=== PATIENT | female | born 1975 | race Caucasian/White ===

== ENCOUNTER 2018-12-12 13:42 | Outpatient (CLI) | payer OTHER ==
[2018-12-12 19:12] LABS: BASOPHILS # (AUTO) 0.1 10^3/uL (0.0-0.1); BASOPHILS % (AUTO) 0.9 %; EOSINOPHILS # (AUTO) 0.2 10^3/uL (0.0-0.7); EOSINOPHILS % (AUTO) 1.8 %; HGB - HEMOGLOBIN 13.6 g/dL (12.0-16.0); LYMPHOCYTES # (AUTO) 3.1 10^3/uL (1.5-3.5); LYMPHOCYTES % (AUTO) 37.4 %; MEAN CORPUSCULAR HEMOGLOBIN 28.5 pg (27.0-31.0); MEAN CORPUSCULAR HGB CONC 31.3 g/dL (32.0-36.0); MEAN CORPUSCULAR VOLUME 91.2 fL (81.0-99.0); MEAN PLATELET VOLUME 11.7 fL (7.9-10.8); MONOCYTES # (AUTO) 0.6 10^3/uL (0.0-1.0); MONOCYTES % (AUTO) 6.8 %; NEUTROPHILS # (AUTO) 4.3 10^3/uL (1.5-6.6); NEUTROPHILS % (AUTO) 52.9 %; PLT - PLATELET COUNT 281 10^3/uL (130-450); RED BLOOD COUNT 4.77 10^6/uL (4.20-5.40); RED CELL DISTRIBUTION WIDTH 13.7 % (12.0-15.0); WHITE BLOOD COUNT 8.2 x10^3/uL (4.8-10.8)
[2018-12-12 19:48] LABS: ALBUMIN 4.4 g/dL (3.2-5.5); ALBUMIN/GLOBULIN RATIO 1.2 (1.0-2.2); ALKALINE PHOSPHATASE 68 IU/L (42-121); ALT ALANINE AMINOTRANSFERASE 26 IU/L (10-60); AST ASPARTATE AMINOTRANSFERASE 24 IU/L (10-42); BILIRUBIN,TOTAL 0.4 mg/dL (0.2-1.0); BUN - BLOOD UREA NITROGEN 17 mg/dL (6-20); CALCIUM 9.8 mg/dL (8.5-10.3); CARBON DIOXIDE - CO2 26 mmol/L (21-32); CHLORIDE 101 mmol/L (101-111); CHOL/HDL RATIO 6.1 (<4.4); CHOLESTEROL 219 mg/dL; CREATININE 0.8 mg/dL (0.4-1.0); GFR - MDRD 78 (>89); GLUCOSE 112 mg/dL (70-100); HDL CHOLESTEROL 36 mg/dL; SODIUM 136 mmol/L (135-145); TOTAL PROTEIN 8.2 g/dL (6.7-8.2)
[2018-12-12 20:07] LABS: LDL CHOLESTEROL,DIRECT 138 mg/dL; LDLD/HDL RATIO 3.8 (<4.4)
== END 2018-12-12 23:59 | disposition home or self-care (01) ==
LOC: LAB.WCP 13:42
PROVIDERS: ATTEND Nurse Practitioner Family
DX: E78.5 Hyperlipidemia, unspecified (principal); F41.9 Anxiety disorder, unspecified; F32.9 Major depressive disorder, single episode, unspecified
CPT/HCPCS: 36415; 80050; 80061; 83721

== ENCOUNTER 2019-01-16 08:58 | Outpatient (CLI) | payer OTHER ==
--- NOTE | 2019-01-16 11:55 | Mammography Report ---
Reason: ABNORMAL MAMMOGRAM Procedure Date: 01/16/2019 Accession Number: [id number] / [id number] Procedure: ARMANI - Diag Special Views Dig LT CPT Code: Final Report FULL RESULT: EXAM: Diag Special Views Dig LT DATE: 01/16/2019 9:53 AM CLINICAL HISTORY: Diagnostic examination. The patient is recalled from screening for a left breast finding. TECHNIQUE: (L) - Left CC, spot CC, ML images are obtained. COMPARISON: 12/19/2018 and 12/04/2014. PARENCHYMAL PATTERN: (A) - The breast(s) demonstrate(s) scattered fibroglandular densities. FINDINGS: The one view asymmetry seen 4.6 cm from the nipple on the left CC projection is tomographically identified as residing in the superior breast with appearance most consistent with breast parenchyma and localized on the MLO projection to the superior portion of the breast cone left ML 3-D image 41 and left CC 3-D image 45, typically benign. There are no suspicious masses, calcifications, or areas of distortion. IMPRESSION: Benign findings. BI-RADS category 2. RECOMMENDATION: (ANNUAL) - Recommend routine annual screening mammography. BI-RADS CATEGORY: (2) - Benign Findings. STANDARD QUALIFYING STATEMENTS: 1. This examination was not reviewed with the aid of Computer-Aided Detection (CAD). 2. A negative or benign imaging report should not preclude biopsy if clinically suspicious findings are present. 3. Dense breasts may obscure an underlying neoplasm. 4. This examination was reviewed with the aid of 3D breast imaging (tomosynthesis).
== END 2019-01-16 08:59 | disposition home or self-care (01) ==
LOC: DI 08:58
PROVIDERS: ATTEND Nurse Practitioner Family
DX: R92.8 Other abnormal and inconclusive findings on diagnostic imaging of breast (principal)

== ENCOUNTER 2022-11-22 10:00 | Outpatient (CLI) | payer OTHER ==
--- NOTE | 2022-11-23 09:40 | Mammography Report ---
BILATERAL DIGITAL SCREENING MAMMOGRAM 3D/2D: 11/22/2022 CLINICAL: Routine screening. Comparison is made to exams dated: 01/16/2019 mammogram, 12/19/2018 mammogram, and 12/04/2014 mammog [facility]. Both breasts are heterogeneously dense, which may obscure small masses (category c / 51-75% glandular tissue). There is an oval mass with a circumscribed margin in the left breast at 11 o'clock middle depth. Thi s is increased in size. No other significant masses, calcifications, or other findings are seen in either breast. IMPRESSION: INCOMPLETE: NEEDS ADDITIONAL IMAGING EVALUATION The oval mass in the left breast is indeterminate. Additional views with possible ultrasound are rec ommended. Based on the Tyrer Cuzick model (a risk assessment model) the patients lifetime risk is 12.6% and he r 10 year risk is 2.7%. According to the ACR, ACS, and NCCN guidelines, an annual breast MRI exam hardeep ng with mammogram is recommended if the patients lifetime risk is 20% or greater. This exam was interpreted at Station ID: [id number]. NOTE: For mammograms, a report in lay terms will be sent to the patient. Approximately 15% of breast malignancies will not be visualized mammographically. In the management of a palpable breast mass, a negative mammogram must not discourage biopsy of a clinically suspicious lesion. Electronically Signed By: Hnuter Stroud M.D. acr/:11/22/2022 11:55:54 ACR BI-RADS Category 0: Incomplete 3340F PARENCHYMAL PATTERN: (D) - The breast(s) demonstrate(s) heterogeneously dense fibroglandular bibiana corbin. BI-RADS CATEGORY: (0) - 0 Mammo and [place] [id number] Immediate follow-up LATERALITY: (L)
== END 2022-11-22 10:01 | disposition home or self-care (01) ==
LOC: DI 10:00
DX: Z12.31 Encounter for screening mammogram for malignant neoplasm of breast (principal); R92.8 Other abnormal and inconclusive findings on diagnostic imaging of breast; R92.333 Mammographic heterogeneous density, bilateral breasts

== ENCOUNTER 2022-12-08 07:50 | Outpatient (CLI) | payer OTHER ==
--- NOTE | 2022-12-08 17:04 | Mammography Report ---
UNILATERAL LEFT DIGITAL DIAGNOSTIC MAMMOGRAM 3D/2D: 12/08/2022 CLINICAL: Patient returns today to evaluate a possible mass in the left breast. Comparison is made to exams dated: 11/22/2022 mammogram, 01/16/2019 mammogram, and 12/19/2018 mammog [facility]. The left breast is heterogeneously dense, which may obscure small masses (category c / 51-75% glandul ar tissue). There is an oval mass with a circumscribed margin in the left breast at 12 o'clock middle depth. Thi s is increased in size. No other significant masses or calcifications are seen in the breast. IMPRESSION: INCOMPLETE: NEEDS ADDITIONAL IMAGING EVALUATION The oval mass in the left breast resembles a cyst and is indeterminate. A targeted ultrasound is recommended and will immediately follow. Based on the Tyrer Cuzick model (a risk assessment model) the patients lifetime risk is 13.7% and he r 10 year risk is 2.9%. According to the ACR, ACS, and NCCN guidelines, an annual breast MRI exam hardeep ng with mammogram is recommended if the patients lifetime risk is 20% or greater. This exam was interpreted at Station ID: [id number]. NOTE: For mammograms, a report in lay terms will be sent to the patient. Approximately 15% of breast malignancies will not be visualized mammographically. In the management of a palpable breast mass, a negative mammogram must not discourage biopsy of a clinically suspicious lesion. Electronically Signed By: Jeronimo Lira M.D. slc/:12/08/2022 08:23:42 ACR BI-RADS Category 0: Incomplete 3340F PARENCHYMAL PATTERN: (D) - The breast(s) demonstrate(s) heterogeneously dense fibroglandular bibiana corbin. BI-RADS CATEGORY: (0) - 0 Ultrasound [id number] Immediate follow-up LATERALITY: (B)
--- NOTE | 2022-12-08 17:04 | Ultrasound Report ---
LIMITED ULTRASOUND OF LEFT BREAST AND AXILLA: 12/08/2022 CLINICAL: Patient returns today to evaluate a focal asymmetry in the left breast. Comparison is made to exams dated: 12/08/2022 mammogram, 11/22/2022 mammogram, 01/16/2019 mammogram, 12/19/2018 mammogram, 12/04/2014 ultrasound, and 12/04/2014 mammogram - [facility]. Color flow and real-time ultrasound of the left breast 11 o'clock, and axilla regions were performed. Dove scale images of the real-time examination were reviewed. There is a 2.3 cm x 2.1 cm x 1.4 cm oval mass with a circumscribed margin in the left breast at 11 o' clock middle depth 6 cm from the nipple. This oval mass is hypoechoic. This abnormality is increase d in size and correlates with mammography findings. Color flow imaging demonstrates that there is va scularity present. No significant abnormalities were seen sonographically in the left axilla. IMPRESSION: SUSPICIOUS OF MALIGNANCY The 2.3 cm x 2.1 cm x 1.4 cm oval mass in the left breast has a differential diagnosis of a fibroaden braeden and is at a low suspicion for malignancy. An ultrasound guided biopsy is recommended. No enlarged left axillary lymph nodes. Exam findings were discussed with the patient by Dr. Peralta. This exam was interpreted at Station ID: [id number]. Electronically Signed By: Jeronimo Lira M.D. slc/:12/08/2022 09:02:01 Ultrasound BI-RADS: 4a Low suspicion for malignancy BI-RADS CATEGORY: (4a) - Low Susp Biopsy [id number] Immediate follow-up LATERALITY: (L)
== END 2022-12-08 07:51 | disposition home or self-care (01) ==
LOC: DI 07:50
PROVIDERS: ATTEND Nurse Practitioner
DX: N63.22 Unspecified lump in the left breast, upper inner quadrant (principal); R92.332 Mammographic heterogeneous density, left breast

== ENCOUNTER 2022-12-19 10:58 | Outpatient (CLI) | payer OTHER ==
[2022-12-19] MEDS ORDERED: LIDOCAINE-MPF 1% 5 ML VIAL TD ONE (14:36)
[2022-12-19] MEDS ORDERED: LIDOCAINE 1%-EPI 1:100000 50 ML VIAL SUBQ ONE (15:00)
[2022-12-19] MEDS ORDERED: LIDOCAINE 1%-EPI 1:100000 50 ML VIAL SUBQ SCH (15:00)
--- NOTE | 2022-12-21 16:19 | Mammography Report ---
UNILATERAL LEFT DIGITAL DIAGNOSTIC MAMMOGRAM POST-PROCEDURE IMAGING FOR MARKER PLACEMENT: 12/19/2022 CLINICAL: Post left breast ultrasound biopsy clip placement imaging. Comparison is made to exams dated: 12/08/2022 mammogram and 11/22/2022 mammogram - [facility]. The left breast is heterogeneously dense, which may obscure small masses (category c / 51-75% glandul ar tissue). There is a marker clip in the appropriate position in the left breast middle depth central to the nip ple seen on the craniocaudal view only. This marker clip placement is at the biopsy site. IMPRESSION: POST PROCEDURE MAMMOGRAM FOR MARKER PLACEMENT There was a successful marker clip placement in the left breast middle depth central to the nipple se en on the craniocaudal view only. Based on the Tyrer Cuzick model (a risk assessment model) the patients lifetime risk is 13.7% and he r 10 year risk is 2.9%. According to the ACR, ACS, and NCCN guidelines, an annual breast MRI exam hardeep ng with mammogram is recommended if the patients lifetime risk is 20% or greater. This exam was interpreted at Station ID: [id number]. NOTE: For mammograms, a report in lay terms will be sent to the patient. Approximately 15% of breast malignancies will not be visualized mammographically. In the management of a palpable breast mass, a negative mammogram must not discourage biopsy of a clinically suspicious lesion. Electronically Signed By: Liza Nagy M.D. [facility]/:12/19/2022 15:56:49 ACR BI-RADS Category Post-procedure mammogram for marker placement PARENCHYMAL PATTERN: (D) - The breast(s) demonstrate(s) heterogeneously dense fibroglandular bibiana corbin. BI-RADS CATEGORY: () - Unspecified - other recall n/a LATERALITY: (B)
--- NOTE | 2022-12-26 09:01 | Ultrasound Report ---
ULTRASOUND GUIDED BIOPSY LEFT BREAST USING VACUUM DEVICE WITH MARKING DEVICE INSERTED: 12/19/2022 CLINICAL: Left breast mass. PATIENT CONSENT: Risks (minor bleeding, infection, vasovagal reaction and repeat procedure), benefits and alternatives were explained to the patient and written informed consent was obtained. Correlation is made to exams dated: 12/08/2022 ultrasound, 12/08/2022 mammogram, 11/22/2022 mammogram, 01/16/2019 mammogram, and 12/19/2018 mammogram - [facility]. An ultrasound guided biopsy using real-time ultrasound was performed for the lobulated solid mass loc ated in the left breast at 11 o'clock middle depth. This was described on the previous mammography a nd ultrasound reports. The skin was prepped in the usual manner. Topical and local anesthetic was a dministered to the access site. A skin gissel was made in the breast. The abnormality was approached from the medial aspect. A biopsy needle was placed adjacent to the abnormality under ultrasound guid ance. Once the needle was documented to be in the correct location, a specimen was obtained using [employer] e Mammotome biopsy system. A titanium clip was inserted into the biopsy cavity. A sterile dressing was applied to the access site. The specimen was sent to the laboratory for pathological analysis. IMPRESSION: ULTRASOUND GUIDED BIOPSY BENIGN Ultrasound guided biopsy of the solid mass in the left breast at 11 o'clock middle depth was successf ul. Pathology indicates benign fibroadenoma (FA). Pathology results are concordant with imaging fin dings. A follow-up left mammogram and an ultrasound in 6 months is recommended to demonstrate stability. This exam was interpreted at Station ID: [id number]. Liza Banks M.D. [facility],aty/:12/23/2022 18:44:31 BI-RADS CATEGORY: () - Mammo and [place] [id number] 6 month follow-up LATERALITY: (L)
== END 2022-12-19 10:59 | disposition home or self-care (01) ==
LOC: DI 10:58
PROVIDERS: ATTEND Nurse Practitioner
DX: D24.2 Benign neoplasm of left breast (principal); R92.332 Mammographic heterogeneous density, left breast
CPT/HCPCS: 19083; 77065; J3490

== ENCOUNTER 2022-12-26 07:51 | Outpatient (CLI) | payer OTHER ==
--- NOTE | 2022-12-26 14:52 | Ultrasound Report ---
PROCEDURE: Head or Neck Soft Tissue INDICATIONS: NECK MASS TECHNIQUE: Real-time scanning was performed of the thyroid gland, with image documentation. COMPARISON: None FINDINGS: Right: Thyroid lobe measures 5.0 x 2.0 x 1.5 cm, and is homogeneous in echotexture. Left: Thyroid lobe measures 5.0 x 2.1 x 1.4 cm, and is homogenous in echotexture. Isthmus: 0.7 mm thick. Nodule number: One Location: Right posterior Size: 1.7 x 1.3 x 1.3 cm. Composition: Predominantly cystic. Echogenicity: Hypoechoic. Shape: wider than tall (0 points). Margins: Smooth (0 points). Echogenic foci: None (0 points). Total points: 3 ACR TI-RADS category: 3 Nodule number: Two Location: Thyroid isthmus Size: 2.0 x 1.0 x 1.4 cm. Composition: Cystic. Echogenicity: Anechoic. Shape: wider than tall (0 points). Margins: Smooth (0 points). Echogenic foci: None (0 points). Total points: 0 ACR TI-RADS category: 1 Nodule number: Three Location: Thyroid isthmus Size: 1.0 x 0.6 x 1.0 cm. Composition: Solid. Echogenicity: Hypoechoic. Shape: wider than tall (0 points). Margins: Smooth (0 points). Echogenic foci: Punctate. Total points: 7 ACR TI-RADS category: 5 IMPRESSION: Thyroid nodules. Best practice guidelines suggest FNA of nodule #3 and follow-up nodule 1. No follow-up required for nodule 2 ACR TI-RADS definitions and recommendations: TI-RADS 1 (benign): 0 points. FNA not needed. TI-RADS 2 (not suspicious): 2 points. FNA not needed. TI-RADS 3 (mildly suspicious): 3 points. "FNA if 2.5 cm or larger, follow up if 1.5 cm or larger (at 1, 3, and 5 years). TI-RADS 4 (moderately suspicious): 4-6 points. "FNA if 1.5 cm or larger, follow up if 1 cm or larger (at 1, 2, 3, and 5 years). TI-RADS 5 (highly suspicious): 7 points or more. "FNA if 1 cm or larger, follow up if 0.5 cm or larger (every year for 5 years). Reviewed by: Buster Marley MD on 12/26/2022 1:51 PM [place] Approved by: Buster Marley MD on 12/26/2022 1:51 PM CHAPARRITA Station ID: [id number]
== END 2022-12-26 07:52 | disposition home or self-care (01) ==
LOC: DI 07:51
PROVIDERS: ATTEND Family Medicine
DX: E04.2 Nontoxic multinodular goiter (principal)

== ENCOUNTER 2023-01-18 09:55 | Outpatient (CLI) | payer OTHER ==
[~2023-01-18 09:55] MED LIST: LIDOCAINE-MPF 1% 5 ML VIAL ONE
--- NOTE | 2023-01-18 12:28 | Ultrasound Report ---
PROCEDURE: FNA Bx w/US Gdn 1st Les INDICATIONS: THYROID NODULE TECHNIQUE: The indications, alternatives, benefits, risks, and complications of the procedure were explained to the patient. Written informed consent was obtained and placed in the chart. The area of interest wa s examined sonographically and a site was chosen for ultrasound guided percutaneous sampling. The sk in was prepared and draped in the usual fashion, and anesthetized with 1% lidocaine infiltrated from the skin down to the lesion. Multiple passes were then performed, with contents emptied into an appr [facility] pathology specimen container. A bandage was applied to the area of access at completion of t he study. COMPARISON: None. FINDINGS: Location(s) of lesion(s) sampled: Isthmus nodule. [place]: 25 gauge hypodermic needles. Number of passes: 6 Medications: 1% lidocaine for local anaesthesia. Complications: None. IMPRESSION: Successful ultrasound-guided Isthmus nodule fine needle aspiration, with cytology results pending. Reviewed by: Nilesh Mccall MD on 01/18/2023 12:27 PM PST Approved by: Nilesh Mccall MD on 01/18/2023 12:27 PM PST Station ID: [id number]
[2023-01-18] MEDS ORDERED: LIDOCAINE-MPF 1% 5 ML VIAL TD ONE (12:56)
== END 2023-01-18 09:56 | disposition home or self-care (01) ==
LOC: DI 09:55
PROVIDERS: ATTEND Family Medicine
DX: E04.1 Nontoxic single thyroid nodule (principal)
CPT/HCPCS: 10005

== ENCOUNTER 2023-03-06 08:37 | Outpatient (CLI) | payer OTHER ==
--- NOTE | 2023-03-06 18:34 | Ultrasound Report ---
PROCEDURE: Soft Tissue Head or Neck INDICATIONS: THYROID CA TECHNIQUE: Real-time scanning was performed of the thyroid gland, with image documentation. COMPARISON: 12/26/2022 FINDINGS: Right: Thyroid lobe measures 5.5 x 2.3 x 1.6 cm, and is homogeneous in echotexture. Left: Thyroid lobe measures 4.8 x 1.5 x 1.6 cm, and is homogenous in echotexture. Isthmus: 0.9 cm thick. There is a level 2 right neck lymph node which is hypervascular without a fatty hilum, measuring 0.5 x 0.5 x 0.4 cm. Note is made of soft plaque resulting in a moderate stenosis of the mid left common c arotid artery of 50-60% by grayscale imaging. Nodule number: 1 Location: Right lobe Size: 1.8 x 1.3 x 1.5 cm, previously 1.7 x 1.3 x 1.3 cm. Composition: Cystic / almost completely cystic (0 points). Echogenicity: Hypoechoic (2 points). Shape: wider than tall (0 points). Margins: Smooth (0 points). Echogenic foci: None (0 points). Total points: 2 ACR TI-RADS category: TI-RADS 2: Not suspicious. Nodule number: 2 Location: Right Isthmus Size: 2.5 x 1.1 x 1.4 cm, previously 20.0 x 1.0 x 1.4 cm. Composition: Cystic / almost completely cystic (0 points). Echogenicity: Hypoechoic (2 points). Shape: wider than tall (0 points). Margins: Smooth (0 points). Echogenic foci: None (0 points). Total points: 2 ACR TI-RADS category: TI-RADS 2: Not suspicious. Nodule number: 3 Location: Isthmus Size: 0.9 x 0.6 x 1.0 cm. Composition: Solid (2 points). Echogenicity: Very hypoechoic (3 points). Shape: wider than tall (0 points). Margins: Smooth (0 points). Echogenic foci: Punctate echogenic foci (3 points). Total points: 8 ACR TI-RADS category: Highly suspicious Nodule number: 4 Location: Left lower pole Size: 1.1 x 1 0.0, 0.9 cm. Composition: Cystic / almost completely cystic (0 points). Echogenicity: Hypoechoic (2 points). Shape: wider than tall (0 points). Margins: Smooth (0 points). Echogenic foci: None (0 points). Total points: 2 ACR TI-RADS category: TI-RADS 2: Not suspicious. IMPRESSION: 1. Known 1 cm maximum diameter Isthmus thyroid nodule, biopsy-proven carcinoma. 2. There are small cervical lymph nodes. A single level 2 right anterior cervical chain lymph node is somewhat suspicious. It is normal in size, but does not have a fatty hilum. 3. Incidental note made of ASCVD with a stenosis secondary to soft plaque involving the mid left comm on carotid artery measuring 50-60%. ACR TI-RADS definitions and recommendations: TI-RADS 1 (benign): 0 points. FNA not needed. TI-RADS 2 (not suspicious): 2 points. FNA not needed. TI-RADS 3 (mildly suspicious): 3 points. "FNA if 2.5 cm or larger, follow up if 1.5 cm or larger (at 1, 3, and 5 years). TI-RADS 4 (moderately suspicious): 4-6 points. "FNA if 1.5 cm or larger, follow up if 1 cm or larger (at 1, 2, 3, and 5 years). TI-RADS 5 (highly suspicious): 7 points or more. "FNA if 1 cm or larger, follow up if 0.5 cm or larger (every year for 5 years). Reviewed by: Sergo Gardner MD on 03/06/2023 6:33 PM PST Approved by: Sergo Gardner MD on 03/06/2023 6:33 PM PST Station ID: [id number]
== END 2023-03-06 08:38 | disposition home or self-care (01) ==
LOC: DI 08:37
DX: C73 Malignant neoplasm of thyroid gland (principal)

== ENCOUNTER 2023-07-25 09:55 | Outpatient (CLI) | payer OTHER ==
--- NOTE | 2023-07-26 09:36 | Ultrasound Report ---
LIMITED ULTRASOUND OF LEFT BREAST: 07/25/2023 CLINICAL: Patient returns for a 6 month follow up of the left breast. Comparison is made to exams dated: 07/25/2023 mammogram, 12/19/2022 ultrasound biopsy, 12/19/2022 som mogram, 12/08/2022 mammogram, 12/08/2022 ultrasound, [facility] Color flow and real-time ultrasound of the left breast 11 o'clock region were performed. Dove scale images of the real-time examination were reviewed. There is a stable benign 2.3 cm x 1.7 cm x 1.2 cm oval mass with a circumscribed margin in the left b reast at 11 o'clock middle depth 6 cm from the nipple. This oval mass is hypoechoic. This correlate s with the previous biopsy. IMPRESSION: BENIGN There is no sonographic evidence of malignancy. The stable 2.3 cm x 1.7 cm x 1.2 cm oval mass in the left breast is consistent with a fibroadenoma an d is benign. Return to annual mammogram screening schedule is recommended, which will be due in approximately 6 mo nths. This exam was interpreted at Station ID: [id number]. Electronically Signed By: Marco Antonio Hayes M.D. ar/:07/25/2023 14:28:26 letter sent: No_Letter Ultrasound BI-RADS: 2 Benign BI-RADS CATEGORY: (2) - 2 Mammogram [id number] return to screening LATERALITY: (B)
--- NOTE | 2023-07-26 09:36 | Mammography Report ---
UNILATERAL LEFT DIGITAL DIAGNOSTIC MAMMOGRAM 3D/2D: 07/25/2023 CLINICAL: Patient returns for a 6 month follow up of the left breast. Comparison is made to exams dated: 12/19/2022 mammogram, 12/19/2022 ultrasound biopsy, 12/08/2022 som mogram, 11/22/2022 mammogram, 01/16/2019 mammogram, and 12/19/2018 mammogram - [facility]. The left breast is heterogeneously dense, which may obscure small masses (category c / 51-75% glandul ar tissue). There is a stable oval mass with a circumscribed margin in the left breast at 11 o'clock middle depth . This correlates with the biopsy. There is a biopsy clip associated with the mass. No other significant masses or calcifications are seen in the breast. IMPRESSION: INCOMPLETE: NEEDS ADDITIONAL IMAGING EVALUATION The stable oval mass in the left breast is consistent with a fibroadenoma and is indeterminate. An u ltrasound is recommended. Based on the Tyrer Cuzick model (a risk assessment model) the patient's lifetime risk is 13.8% and he r 10 year risk is 3.1%. According to the ACR, ACS, and NCCN guidelines, an annual breast MRI exam hardeep ng with mammogram is recommended if the patient's lifetime risk is 20% or greater. This exam was interpreted at Station ID: [id number]. NOTE: For mammograms, a report in lay terms will be sent to the patient. Approximately 15% of breast malignancies will not be visualized mammographically. In the management of a palpable breast mass, a negative mammogram must not discourage biopsy of a clinically suspicious lesion. Electronically Signed By: Marco Antonio xiong/aldo:07/25/2023 14:25:56 ACR BI-RADS Category 0: Incomplete 3340F PARENCHYMAL PATTERN: (D) - The breast(s) demonstrate(s) heterogeneously dense fibroglandular parmegan corbin. BI-RADS CATEGORY: (0) - 0 Ultrasound [id number] Immediate follow-up LATERALITY: (L)
== END 2023-07-25 09:56 | disposition home or self-care (01) ==
LOC: DI 09:55
PROVIDERS: ATTEND Specialist
DX: N63.22 Unspecified lump in the left breast, upper inner quadrant (principal); R92.332 Mammographic heterogeneous density, left breast